=== PATIENT | female | born 1995 | race Hispanic/Latino ===

== ENCOUNTER → 2024-10-08 17:45 | Outpatient (ROUT) | payer OTHER, SELFPAY | PROVIDERS: Visit Provider Nurse Practitioner Obstetrics & Gynecology | DX: Z34.80 Encounter for supervision of other normal pregnancy, unspecified trimester (principal) | CPT/HCPCS: 86850; 86900; 86901 ==

== ENCOUNTER 2024-10-28 21:10 | Inpatient (IN) | payer OTHER, SELFPAY ==
[2024-10-28 21:26] VITALS: BP 119/68
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
[2024-10-28 22:00] VITALS: BP 119/68; PULSE 89; RESP 19; TEMP 2.6; TEMP 36.7
[2024-10-28 22:43] LABS: Add Manual Diff / Slide Review NO; Basophils Absolute Auto 100 /uL (0-100); Basophils Percent Auto 0.6 % (0-2); Eosinophils Absolute Auto 100 /uL (0-450); Eosinophils Percent Auto 1.1 % (2-4); Hematocrit 37.2 % (36-46); Hemoglobin 12.6 g/dL (12.0-16.0); Lymphocytes Absolute Auto 2100 /uL (1100-4500); Mean Corpuscular HGB Conc 33.8 % (30-36); Mean Corpuscular Hemoglobin 29.1 PG (26-34); Monocytes Absolute Auto 400 /uL (0-900); Monocytes Percent Auto 5.1 % (3-14); Neutrophils Absolute Auto 6200 /uL (1500-7000); Neutrophils Percent Auto 69.2 % (50-75); Platelet Count 201 X10^3/uL (150-400); Red Blood Cell Count 4.33 X10^6/uL (4.0-5.2); Red Cell Distribution Width 20.7 % (11.6-14.8); White Blood Cell Count 8.9 X10^3/uL (4.5-11.0)
[2024-10-28 23:23] LABS: Anisocytosis 1+; Microcytosis 1+
--- NOTE | 2024-10-29 06:39 | PM.OBPNLAB ---
Date/Time Date Patient Seen: 10/29/24 Time Patient Seen: 06:39 Pain Control Pain control: tolerating well Comments: Went for a walk a few times last night, then was able to sleep most of the night. Contractions are stronger this morning than they were last night, breathing through them consistently now. Continues to leak clear fluid with small bloody discharge every time she wipes. Agreeable to cervical exam at this time. VS: BP 102/62, HR 85bpm, T 36.8C Temporal Pelvic Exam Dilation (cm): 4 Effacement (%): 75 station: -2 Amniotic membrane status: Leaking (clear) Comments: SROM x 13 hours without sx of infection. Contractions Monitor mode: Palpation Contraction frequency (min): 4 Contraction duration (min): 1 Contraction pattern: Regular Contraction intensity: Moderate Status status: Category l (Reassuring by intermittent auscultation throughout the night) Heart Rate Baseline: 130 Assessment and Plan Assessment: other (Approaching active labor) Plan: continuous present management Comments: Offered membrane sweep and/or breast pumping for nipple stimulation and Humza declined both options. Continue expectant management of PROM. Anticipate shift to active labor prior to 24 hours or ROM. Reassess in 4-6 hours or sooner, PRN.
[2024-10-29] MEDS: ACETAMINOPHEN 325 MG TABLET 975 MG PO (08:49)
--- NOTE | 2024-10-29 12:51 | PM.OBPNLAB ---
Date/Time Date Patient Seen: 10/29/24 Time Patient Seen: 12:30 Pain Control Pain control: tolerating well Comments: Has been walking more. Continues to feel slowly strengthening contractions, but does not feel like labor yet. Continues to leak small amounts of clear fluid. Now open to pumping for augmentation, but verbalizes desire to avoid pitocin until 24 hours of ROM. Family is present and supportive. VS: BP 110/77, HR 88bpm, T 36.1C Temporal Pelvic Exam Dilation (cm): 4 Effacement (%): 75 station: -2 Amniotic membrane status: Leaking (clear) Comments: CE deferred, not in labor PROM x 19 hours without sx of infection Contractions Monitor mode: Palpation Contraction frequency (min): 4 Contraction pattern: Regular Contraction intensity: Moderate Status status: Category l (Reassuring by intermittent auscultation) Heart Rate Baseline: 135 Assessment and Plan Assessment: other (PROM, early labor) Plan: begin patient augmentation Comments: Counseled on risk of infection at 18 hours with strong recommendation for pitocin at 24 hours of life. She states she will agree to picotin at 24 hours, but not before. Will initiate breast pumping at this time. Encourage ambulation. Reassess in 4 hours or sooner, PRN.
[2024-10-29] MEDS: LACTATED RINGERS 1,000 ML 100 ML IV (16:10)
--- NOTE | 2024-10-29 17:26 | PM.AN.REGBLK ---
Regional Block Pre-procedure Procedure: Continuous Lumbar Epidural for L&D Attending OB provider: Haily Hunt PMH/ROS narrative: , SROM, spont labor, requests epidural. ROS negative PSH/Anesthesia history narrative: Epidurals with previous deliveries, worked well Exam narrative: Mall III, BMI 40 ASA Class: III Labs: Hct 37.2 % (36-46) 10/28/24 22:30 Plt Count 201 X10^3/uL (150-400) 10/28/24 22:30 Medications: Current Medications Generic Name Dose Route Start Last Admin Trade Name Freq PRN Reason Stop Dose Admin Calcium Carbonate 1,000 mg 10/28/24 21:34 Calcium Carbonate 500 Mg Tab PO Q2HR PRN Dyspepsia Carboprost Tromethamine 250 mcg 10/28/24 21:34 Carboprost 250 Mcg/Ml Ampul IM Q90M PRN Bleeding Fentanyl 100 mcg 10/28/24 21:34 Fentanyl 100 Mcg/2 Ml Inj IV Q1H PRN Pain, Severe (7-10) Oxytocin/Lactated Ringer's 30 unit in 500 mls @ 200 mls/hr 10/28/24 21:34 Oxytocin Premix IV CONT PRN Bleeding Protocol Tranexamic Acid 1,000 mg/ 100 mls @ 600 mls/hr 10/28/24 21:34 Sodium Chloride IV NOW PRN Bleeding Oxytocin/Lactated Ringer's 30 unit in 500 mls @ 2 mls/hr 10/28/24 21:45 Oxytocin Premix IV TITRATE OZZY Protocol 2 MILLIUNIT/MIN Lidocaine HCl 20 ml 10/28/24 21:34 Lidocaine 1% 20 Ml INJ INTRA-OP PRN Post Delivery Methylergonovine Maleate 0.2 mg 10/28/24 21:34 Methylergonovine 0.2 Mg Tablet PO Q6HR PRN Heavy Bleeding Methylergonovine Maleate 0.2 mg 10/28/24 21:34 Methylergonovine 0.2 Mg/Ml Vial IM NOW PRN Bleeding Mineral Oil 30 ml 10/28/24 21:34 Mineral Oil 30 Ml Udc TOP PRN PRN Version Misoprostol 800 mcg 10/28/24 21:34 Misoprostol 200 Mcg Tablet AK NOW PRN Bleeding Misoprostol 400 mcg 10/28/24 21:34 Misoprostol 200 Mcg Tablet SL NOW PRN Bleeding Naloxone HCl 0.2 mg 10/28/24 21:34 Naloxone 0.4 Mg/Ml Vial IV Q2MIN PRN Opiate Reversal Ondansetron HCl 4 mg 10/28/24 21:34 Ondansetron 4 Mg/2 Ml Inj IV Q4HR PRN Nausea And Vomiting Oxytocin 10 unit 10/28/24 21:34 Oxytocin 10 Unit/Ml Vial IM NOW PRN Bleeding Allergies: Allergies Allergy/AdvReac Type Severity Reaction Status Date / Time No Known Drug Allergies Allergy Unverified 10/28/24 21:52 Procedure Insertion date: 10/29/24 Insertion time: 17:01 Prep/Local: 1% lidocaine (chlorhexidine skin prep, dry x 3 min) Interspace: L4-5 Patient position: sitting Needle: 17 gauge Tuohy Loss of resistance with: saline SAYDA at (cm): 7 Catheter placed at SKIN (cm): 13 Catheter in SPACE (cm): 6 Sensory level: T10 Insertion: No CSF, No Blood, No Paresthesia with insertion, No Paresthesia with injection and No Test dose reaction Initial Medications TEST DOSE time: 17:07 BOLUS DOSE time: 17:21 BOLUS DOSE (mL): 7 BOLUS DOSE med: other (pump solution) Infusion INFUSION: 0.125% bupivacaine and with fentanyl 2 mcg/mL Initial rate (mL/hr): 8 Post-procedure Anesthesia date START: 10/29/24 Anesthesia time START: 17:01 Anesthesia date END: 10/29/24 Anesthesia time END: 18:20 Post-procedure Anesthesia Assessment: Yes CV function: HR/BP stable, Yes Resp function: RR/sat/airway adequate, Yes Post-op hydration adequate, Yes Pain control adequate, Yes Nausea & vomiting absent, Yes Temperature > 36 C, Yes Mental status appropriate and Yes Anesthesia complications
--- NOTE | 2024-10-29 18:44 | PATH_ITS ---
[facility] Accession Number: [id number] No. of containers..01 Tissue . 01 Material submitted: . placenta - PLACENTA . 01 Diagnosis: PLACENTA: Intact [place] placenta with features of maturation, consistent with third trimester gestational age. Placental weight: 414 grams, greater than 10th percentile for gestational age of 39 weeks 4 days. membranes with focal mild acute chorioamnionitis; no features of meconium staining. Paracentrally inserted unremarkable three vessel umbilical cord; no evidence of acute arteritis, phlebitis, funisitis, true knots, or thrombi. Placental parenchyma with chronic villitis. See comment. No evidence of infarcts, or features of abruption. MRV 11/05/2024 1155 Local . 01 Comment: Multiple slides with multiple foci of chronic inflammation involving terminal villi are noted (supported by CD3 and CD8 immunostains). Plasma cell villitis is not identified (negative CD138 immunostain). Viral cytopathic changes are not identified (CMV immunostains are negative). The histologic findings are suggestive of villitis of unknown etiology (KAYLA), high grade in the appropriate clinical context. Infectious etiologies cannot be entirely ruled out. KAYLA (high-grade) is significantly associated with increased likelihood of recurrences amongst other associations. . 01 Electronically signed: . Afsaneh Casey MD, Pathologist NPI- [id number] . 01 Gross description: . Received in formalin with two patient identifiers and placenta, is a discoid [place] placenta with a trimmed weight of 414 grams, and measuring 18.1 x 14.5 x 2.5 cm, with no accessory lobes identified. . The membranes are georges and translucent with thickened areas located near the insertion across approximately 20% of the membrane surface. No additional lesions are identified. They insert at the margin and have a point of rupture 3.0 cm from the nearest disc edge. . The cord (37.7 cm in length and ranging from 1.2-1.7 cm in diameter, has a leftward coil and an index of approximately 1 twist per 5 cm. The cord inserts paracentrally, and sectioning unremarkable trivascular architecture with no true knots identified. . The surface is blue-romero with a possible slight green tint and no lesions identified. The vasculature is arborizing and unremarkable. . The maternal surface is apparently complete with no lesions or adherent hemorrhage identified. Sectioning reveals a red spongy cut surface with no lesions identified. National Sales Director sections are submitted as follows: . A1: Membrane roll and placental end of cord. A2: Membrane roll and end of cord. A3-A5: Central full thickness unremarkable sections. ([id number]) /MRV 10/30/2024 [facility]9 Local . 01 Microscopic: . CD3 and CD5 immunostains highlight the T-lymphocytes within the chorionic villi. CD138 is negative for plasma cell infiltration and CMV is negative for viral inclusions. Controls stain appropriately. . * This test was developed and the performance characteristics were validated by [employer]. It has not been cleared or approved by the U.S. Food and Drug Administration. . 01 Pathologist provided ICD-10: O41.1230, O41.1430 . 01 CPT . 631408, C75219, Q68731 Specimen Comment: A courtesy copy of this report has been sent to [facility] Pathology Performed at: [address] [address], [place], [place] [id number] MD Tutu Baltazar MD Phone: [phone]
--- NOTE | 2024-10-29 18:44 | PM.OBPRVD ---
Events: Premature Rupture Membrane Labor & Delivery Delivery date: 10/29/24 Delivery Time: 18:20 Intrapartal Events: None Cervical ripening method: none Induction method: other (breast pumping) Delivery monitor: external FHT and external uterine Route of delivery: Episiotomy description: None L&D Laceration Description: None Quantitative Blood Loss: 100 Anesthesia Type: Epidural and Other (NO2) Narrative: PROM x 25 hours with expectant management led to minimal progress until augmentation with a breast pump was initiated. Labor progressed rapidly once augmented. An epidural was requested and adequate pain relief was achieved. Next CE was C/C/0 and second stage was initiated. Coached pushing in left side lying position led to NSVB of a vigorous baby boy in CHRISTIAN position. There was no nuchal cord and the shoulders delivered easily without additional maneuvers. was placed on maternal abdomen with a notably short cord. 30 units of pitocin in 500ML LR was started for AMTSL. After cessation of pulsation, the cord was double clamped by CNM and cut by FOB. Cord blood sample was collected. Gentle cord traction and a single maternal push led to spontaneous, Schultze delivery of an apparently intact placenta, membranes and 3VC. Fundus immediately firm and bleeding scant. Straight cath performed for 180mL urine. Vagina and perineum inspected and intact. QBL 100mL. Both mother and baby stable and skin to skin as I left the room. Baby 1: gender: Male Presentation: vertex Position: Right Occiput Anterior Placenta delivery description: Spontaneous and Normal Configuration Cord Vessel Description: 3 Vessels score (1 min): 8 score (5 min): 9 weight: 3.363 kg Plan for aftercare: Routine care (Placenta to pathology for hx of partial abruption)
[2024-10-29] MEDS: TRANEXAMIC ACID 1,000 MG in SODIUM CHLORIDE 0.9% 100 ML 200 MG IV (20:34)
[2024-10-29] MEDS: LACTATED RINGERS 1,000 ML 999 ML IV (20:45)
[2024-10-29] MEDS: KETOROLAC 30 MG/ML VIAL IV (23:30)
[2024-10-29] MEDS: WITCH HAZEL/GLYCERIN PADS 1 EACH TOP (23:45)
[2024-10-30] MEDS: ACETAMINOPHEN 325 MG TABLET 650 MG PO ×3 (03:09→17:22)
[2024-10-30] MEDS: IBUPROFEN 600 MG TABLET PO ×2 (06:32→13:21)
[2024-10-30] MEDS: OXYCODONE IR 5 MG TABLET PO ×2 (06:55→13:19)
[2024-10-30 10:04] LABS: Hematocrit 31.2 % (36-46); Hemoglobin 10.7 g/dL (12.0-16.0)
[2024-10-30] MEDS: DOCUSATE 100 MG CAPSULE PO (11:15)
--- NOTE | 2024-10-30 15:06 | PM.OBDS.1 ---
Discharge Providers Provider Date of admission: 10/28/24 21:10 Discharge Date: 10/30/24 Consults: 10/30/24 18:40 Consult to Manager Marketing Communication Routine Comment: Discharge provider: Celeste Upton CNM, ARNP Summary Hospital Course Date Patient Seen: 10/30/24 Time Patient Seen: 15:22 Diagnoses: O80 Hospital Course: Admitted to L&D with mild contractions after PROM. Expectant management and then augmentation with a breast pump. Epidural. NSVB of viable male. QBL 379. Intact perineum. . Normal course except for some dizziness treated with IV hydration and repeat H&H, normal. Peripartum Data Delivery Method: Natural Vaginal Laceration Description: None [place] 1: Gender: Male Discharge Diagnosis (1) (normal spontaneous vaginal delivery): Status: Acute Status at Discharge Cognitive/behavioral status at discharge: oriented and calm Functional status at discharge: independent ambulation Overall status at discharge: patient is progressing back to baseline Time Spent with Patient Time attestation: Total time spent providing and/or coordinating discharge services: Time spent: Less than 30 minutes Specific discharge activities: discharge teaching Objective Labs 10/30/24 09:35 Labs: Laboratory Results - last 24 hr 10/30/24 09:35 Hgb 10.7 L Hct 31.2 L Exam Vital Signs (past 8 hours): BP: 92/48 HR: 83 bpm RR: 15/min SpO2: 97% Other: Fundus firm at U-1, midline. Lochia scant Perineum intact with minimal edema Discharge Plan Discharge Plan Patient Disposition: Home Discharge orders & Medications Prescriptions: Continued Vitamin 27 mg iron- 800 mcg tablet 1 tab DAILY Follow up/Referrals: Celeste Upton CNM, ARNP [[facility] [employer] [facility] [facility]] - 2 Weeks (2 and 6 week visits scheduled with [facility]. See e-mail for details.) Diet/Activity/Treatments Diet: Diet as Tolerated and Regular Diet comment: increase fiber and fluid for healing and stool Activity: low mena x 2 weeks Cold/Heat Therapy: as needed Skin/Wound/Dressing Care Skin care: usual care Report to your healthcare provider any signs of infection, such as:: chills, fever, increased pain, unusual drainage and unusual redness Visit Report/Discharge Packet Stand Alone Forms: Patient Portal/API, Stroke Signs & Symptoms
[2024-10-30 17:13] VITALS: BP 100/58; PULSE 85; RESP 15; TEMP 36.6
== END 2024-10-30 18:30 | disposition home or self-care (01) | DRG 560 ==
PROVIDERS: Admitting Provider Nurse Practitioner Obstetrics & Gynecology; Referring Provider Nurse Practitioner Obstetrics & Gynecology; Visit Provider Nurse Practitioner Obstetrics & Gynecology
DX: O42.02 Full-term premature rupture of membranes, onset of labor within 24 hours of rupture (principal); O45.93 Premature separation of placenta, unspecified, third trimester; Z3A.39 39 weeks gestation of pregnancy; Z37.0 Single live birth; O99.02 Anemia complicating childbirth; D50.9 Iron deficiency anemia, unspecified
CPT/HCPCS: 36415; 59050; 84112; 85014; 85018; 85025; 86850; 86900; 86901; G0379; J1885